=== PATIENT | male | born 1965 | race African-American/Black ===

== ENCOUNTER 2017-11-01 18:52 | Inpatient (IN) | payer OTHER ==
[2017-11-01 20:14] VITALS: BMI 31.7
--- NOTE | 2017-11-01 20:31 | HP ---
Admission ROS [facility] Chief Complaint: Seeking Rehab. for cocaine dependence Allergies/Adverse Reactions: Allergies Allergy/AdvReac Type Severity Reaction Status Date / Time No Known Allergies Allergy Verified 11/01/17 20:03 History of Present Illness: 52 years old male with a long history of cocaine dependence is admitted to rehab. Patient reports medical history of HTN, DM type 2 and Depression. Denies suicidal ideation. This is his first admission to [facility] and he had previous admission to rehab. about seven years ago. Exam Limitations: No Limitations - Ebola screening Have you traveled outside of the country in the last 21 days: No Have you had contact with anyone from an Ebola affected area: No Have you been sick,other than usual withdrawal symptoms: No Do you have a fever: No - Review of Systems Constitutional: No Symptoms Reported EENT: reports: No Symptoms Reported Respiratory: reports: No Symptoms reported Cardiac: reports: No Symptoms Reported GI: reports: No Symptoms Reported : reports: No Symptoms Reported Musculoskeletal: reports: No Symptoms Reported Integumentary: reports: No Symptoms Reported Neuro: reports: No Symptoms reported Endocrine: reports: No Symptoms Reported Hematology: reports: No Symptoms Reported Psychiatric: reports: Mood/Affect Appropiate, Orientated x3 Other Systems: Reviewed and Negative Patient History - Patient Medical History Hx Anemia: No Hx Asthma: No Hx Chronic Obstructive Pulmonary Disease (COPD): No Hx Cancer: No Hx Cardiac Disorders: No Hx Congestive Heart Failure: No Hx Hypertension: Yes Hx Hypercholesterolemia: No Hx Pacemaker: No HX Cerebrovascular Accident: No Hx Seizures: No Hx Dementia: No Hx Diabetes: Yes (recently diagnosed, on Metformin) Hx Gastrointestinal Disorders: No Hx Liver Disease: No Hx Genitourinary Disorders: No Hx Sexually Transmitted Disorders: No Hx Renal Disease (ESRD): No Hx Thyroid Disease: No Hx Human Immunodeficiency Virus (HIV): No (Negative 2017) Hx Hepatitis C: No Hx Depression: Yes Hx Suicide Attempt: No Hx Bipolar Disorder: No Hx Schizophrenia: Yes - Patient Surgical History Past Surgical History: No - PPD History Previous Implant?: Yes ([facility], [place], PPD+, INH 9 months) Documented Results: Positive w/o proof - Reproductive History Patient is a Female of Child Bearing Age (11 -55 yrs old): No (Male) - Smoking Cessation Smoking history: Current every day smoker Have you smoked in the past 12 months: Yes Aproximately how many cigarettes per day: 8 Hx Chewing Tobacco Use: No Initiated information on smoking cessation: Yes 'Breaking Loose' booklet given: 11/01/17 - Substance & Tx. History Hx Alcohol Use: No Hx Substance Use: Yes Substance Use Type: Cocaine Hx Substance Use Treatment: Yes ([facility] [place]) - Substances Abused Cocaine Route: Smoking Frequency: Daily Amount used: $100 daily Age of first use: 29 Date of Last Use: 10/30/17 Family Disease History - Family Disease History Family History: Denies Admission Physical Exam [facility] - Vital Signs Vital Signs: Vital Signs - 24 hr 11/01/17 20:08 Temperature 97.8 F Pulse Rate 70 Respiratory 18 Rate Blood Pressure 144/80 - Physical General Appearance: Yes: Within Normal Limits, Appropriately Dressed HEENTM: Yes: EOMI, Normal Voice, Other (missing upper and lower teeth) Respiratory: Yes: Lungs Clear, Normal Breath Sounds, No Respiratory Distress Neck: Yes: Supple Breast: Yes: Breast Exam Deferred Abdominal: Yes: Within Normal Limits, Soft Genitourinary: Yes: Within Normal Limits Back: Yes: Normal Inspection Extremities: Yes: Within Normal Limits, Normal Capillary Refill Neurological: Yes: Fully Oriented, Alert, Normal Mood/Affect, Normal Response Integumentary: Yes: Within Normal Limits, Warm Lymphatic: Yes: Within Normal Limits - Diagnostic (1) Cocaine dependence, uncomplicated Current Visit: Yes Status: Chronic (2) Nicotine dependence Current Visit: Yes Status: Chronic (3) HTN (hypertension) Current Visit: Yes Status: Chronic (4) Diabetes Current Visit: Yes Status: Chronic (5) Depression Current Visit: Yes Status: Chronic Cleared for Admission [facility] - Detox or Rehab [facility] Level of Care: Observation Bed Claeared for Rehab Admission: Yes [facility] Breath Alcohol Content Breath Alcohol Content: 0 Urine Drug Screen - Results Drug Screen Negative: No Urine Drug Screen Results: [facility]-Cocaine Inpatient Rehab Admission - Initial Determination Are CD services needed?: Yes Free of communicable disease: Yes Not in need of hospitalization: Yes - Rehab Admission Criteria Previous failed treatment: Yes Poor recovery environment: Yes Comorbidities: Yes Lacks judgement: No Patient is meeting Inpatient Rehab admission criteria:: Yes
[2017-11-01] MEDS ORDERED: P-EPHED 60MG/TRIPROLIDI 2.5MG TABLET PO PRN (20:44)
[2017-11-01] MEDS ORDERED: MAG HYDROX/AL HYDROX/SIMETH 30 ML UNIT-DOSE CUP PO PRN (20:44)
[2017-11-01] MEDS ORDERED: LOPERAMIDE HCL 2 MG CAPSULE PO PRN (20:44)
[2017-11-01] MEDS ORDERED: guaiFENesin/D-METHORPHAN HB 10 ML UNIT-DOSE CUPS PO PRN (20:44)
[2017-11-01] MEDS ORDERED: MAGNESIUM CITRATE 300 ML BOTTLE PO PRN (20:44)
[2017-11-01] MEDS ORDERED: ACETAMINOPHEN 325 MG TABLET (FP) PO PRN (20:44)
[2017-11-01] MEDS ORDERED: MAGNESIUM HYDROX 2400MG/30ML ORAL SUSPENSION 30 ML CUP PO PRN (20:44)
[2017-11-01] MEDS ORDERED: MENTHOL/PHENOL 1 EACH UD MM PRN (20:44)
[2017-11-01] MEDS ORDERED: NICOTINE POLACRILEX 2 MG GUM BC PRN (20:44)
[2017-11-01] MEDS ORDERED: IBUPROFEN 400 MG TABLET (FP) PO PRN (20:44)
[2017-11-01] MEDS: THIAMINE HCL 100 MG TABLET (FP) PO SCH (23:19)
[2017-11-01] MEDS: DIVALPROEX SODIUM 500 MG TABLET E.C. PO SCH (23:19)
[2017-11-01] MEDS: risperiDONE 2 MG TABLET PO SCH (23:19)
[2017-11-01] MEDS: MIRTAZAPINE 15 MG TABLET (FP) PO SCH (23:19)
[2017-11-02 01:26] LABS: URINE APPEARANCE CLEAR; URINE BILIRUBIN NEGATIVE (NEGATIVE); URINE BLOOD 1+ (NEGATIVE); URINE COLOR YELLOW; URINE GLUCOSE (UA) NEGATIVE (NEGATIVE); URINE KETONE NEGATIVE (NEGATIVE); URINE LEUK ESTERASE NEGATIVE (NEGATIVE); URINE NITRITE NEGATIVE (NEGATIVE); URINE PROTEIN NEGATIVE (NEGATIVE); URINE UROBILINOGEN NEGATIVE mg/dL (0.2-1.0)
[2017-11-02 01:54] LABS: EPI CELLS RARE /HPF (FEW); URINE MUCUS RARE
[2017-11-02] MEDS: metFORMIN HCL 500 MG TABLET (FP) PO SCH ×2 (06:38→16:55)
[2017-11-02 10:03] LABS: HEMATOCRIT 42.2 % (35.4-49); HEMOGLOBIN 13.6 GM/dL (11.7-16.9); MCH 28.5 pg (25.7-33.7); MCHC 32.2 g/dl (32.0-35.9); MEAN CELL VOLUME 88.6 fl (80-96); MEAN PLT VOLUME 8.3 fl (7.5-11.1); PLATELET COUNT 273 K/MM3 (134-434); RBC 4.76 M/mm3 (4.00-5.60); RDW 14.9 % (11.9-15.9); WHITE BLOOD COUNT 6.9 K/mm3 (4.0-10.0)
--- NOTE | 2017-11-02 10:10 | EKG ---
Test Reason : Blood Pressure : / mmHG Vent. Rate : 061 BPM Atrial Rate : 061 BPM P-R Int : 144 ms QRS Dur : 092 ms QT Int : 396 ms P-R-T Axes : 036 040 -03 degrees QTc Int : 398 ms NORMAL SINUS RHYTHM NONSPECIFIC T WAVE ABNORMALITY ABNORMAL ECG NO PREVIOUS ECGS AVAILABLE Confirmed by LANDRY PARRISH MD ([id number]) on 11/02/2017 10:09:43 AM Referred By: Confirmed By:LANDRY PARRISH MD
[2017-11-02 10:15] LABS: ALBUMIN 3.1 g/dl (3.4-5.0); ALK PHOS 70 U/L (45-117); ANION GAP 9 (8-16); BILIRUBIN,TOTAL 0.2 mg/dL (0.2-1.0); BLOOD UREA NITROGEN 10 mg/dL (7-18); CALCIUM 8.5 mg/dL (8.5-10.1); CHLORIDE 109 mmol/L (98-107); CO2 25 mmol/L (21-32); CREATININE 1.2 mg/dL (0.7-1.3); GLUCOSE,RANDOM 114 mg/dL (74-106); POTASSIUM 3.5 mmol/L (3.5-5.1); SGOT/AST 10 U/L (15-37); SGPT/ALT 18 U/L (12-78); SODIUM 143 mmol/L (136-145); TOT PROT 6.1 g/dl (6.4-8.2)
[2017-11-02 10:24] LABS: SICKLE CELL SCREEN NEGATIVE (NEGATIVE)
[2017-11-02] MEDS: PRENATAL VITAMINS W/ FOLIC ACID TABLET (FP) PO SCH (10:43)
[2017-11-02] MEDS: NICOTINE 14 MG/24 HOURS TOPICAL PATCH TD SCH (10:44)
--- NOTE | 2017-11-02 12:57 | HP ---
Psychiatrist Admission - Data Date of interview: 11/02/17 Admission source: [facility] Identifying data: This is the first 5n inpatient rehabilitation admission for thsi 52 year old single AA male father of 2, crescencio[loyed and on SSI, he is domililed residing in [place]. Medical History: HTN, positive PPD and has completed 9 months of INH treatment DM type II, yet to take any medication for DM, right thumb disfigured from a fracture that was not repaired many years ago. Smokes cigarettes 8 a day. Psychiatric History: Patient is poor historian, he is irritable "I am tired", admits was diagnosed as Schizoaffective disorder, several psychiatric hospitalizations, sees the psychiatrist in one of the [facility] Mental OPD, currently on Depakote 1000 mg po hs, Rispardal 2 mg po hs and Remeron 15 mg po hs. Physical/Sexual Abuse/Trauma History: Denies Vital Signs: Vital Signs - 24 hr 11/01/17 11/01/17 11/02/17 20:08 22:27 00:41 Temperature 97.8 F 98.2 F Pulse Rate 70 70 Respiratory 18 18 18 Rate Blood Pressure 144/80 132/77 11/02/17 11/02/17 03:30 07:01 Temperature 97.8 F Pulse Rate 66 Respiratory 18 20 Rate Blood Pressure 135/75 Allergies/Adverse Reactions: Allergies Allergy/AdvReac Type Severity Reaction Status Date / Time No Known Allergies Allergy Verified 11/01/17 20:03 Concur with the findings of this exam: Yes - Substance Abuse/Tx History Hx Alcohol Use: No Hx Substance Use: Yes Substance Use Type: Cocaine (daily use) Hx Substance Use Treatment: Yes ([facility] ) Mental Status Exam - Mental Status Exam Alert and Oriented to: Place, Person Cognitive Function: Grossly Intact Patient Appearance: Well Groomed Mood: Angry, Hostile, Irritable Affect: Mood Congruent Patient Behavior: Guarded Speech Pattern: Appropriate Voice Loudness: Normal Thought Process: Goal Oriented Thought Disorder: Not Present Hallucinations: Denies Suicidal Ideation: Denies Homicidal Ideation: Denies Insight/Judgement: Fair Sleep: Fair Appetite: Fair Muscle strength/Tone: Normal Gait/Station: Normal Psychiatric Findings - Problem List ([place] 1, 2,3) (1) Schizoaffective disorder Current Visit: Yes Status: Acute (2) Cocaine dependence Current Visit: Yes Status: Acute (3) Nicotine dependence Current Visit: Yes Status: Chronic - Initial Treatment Plan Initial Treatment Plan: will continue his current medications, monitor progress as needed.
[2017-11-02] MEDS: risperiDONE 2 MG TABLET PO SCH (21:46)
[2017-11-02] MEDS: DIVALPROEX SODIUM 500 MG TABLET E.C. PO SCH (21:46)
[2017-11-02] MEDS: MIRTAZAPINE 15 MG TABLET (FP) PO SCH (21:46)
[2017-11-02] MEDS: THIAMINE HCL 100 MG TABLET (FP) PO SCH (21:47)
[2017-11-03] MEDS: metFORMIN HCL 500 MG TABLET (FP) PO SCH ×2 (07:45→16:50)
[2017-11-03] MEDS: PRENATAL VITAMINS W/ FOLIC ACID TABLET (FP) PO SCH (10:51)
[2017-11-03] MEDS: NICOTINE 14 MG/24 HOURS TOPICAL PATCH TD SCH (10:51)
[2017-11-03] MEDS: DIVALPROEX SODIUM 500 MG TABLET E.C. PO SCH (22:11)
[2017-11-03] MEDS: THIAMINE HCL 100 MG TABLET (FP) PO SCH (22:11)
[2017-11-03] MEDS: MIRTAZAPINE 15 MG TABLET (FP) PO SCH (22:12)
[2017-11-03] MEDS: risperiDONE 2 MG TABLET PO SCH (22:12)
[2017-11-04] MEDS: metFORMIN HCL 500 MG TABLET (FP) PO SCH ×2 (07:15→16:45)
[2017-11-04] MEDS: PRENATAL VITAMINS W/ FOLIC ACID TABLET (FP) PO SCH (10:44)
[2017-11-04] MEDS: NICOTINE 14 MG/24 HOURS TOPICAL PATCH TD SCH (10:44)
[2017-11-04] MEDS: MIRTAZAPINE 15 MG TABLET (FP) PO SCH (21:45)
[2017-11-04] MEDS: risperiDONE 2 MG TABLET PO SCH (21:45)
[2017-11-04] MEDS: DIVALPROEX SODIUM 500 MG TABLET E.C. PO SCH (21:45)
[2017-11-04] MEDS: THIAMINE HCL 100 MG TABLET (FP) PO SCH (21:46)
[2017-11-05] MEDS: metFORMIN HCL 500 MG TABLET (FP) PO SCH ×2 (07:37→16:41)
[2017-11-05] MEDS ORDERED: VITAMIN D PO SCH (10:00)
[2017-11-05] MEDS: PRENATAL VITAMINS W/ FOLIC ACID TABLET (FP) PO SCH (11:34)
[2017-11-05] MEDS: NICOTINE 14 MG/24 HOURS TOPICAL PATCH TD SCH (11:34)
[2017-11-05] MEDS: MIRTAZAPINE 15 MG TABLET (FP) PO SCH (21:38)
[2017-11-05] MEDS: DIVALPROEX SODIUM 500 MG TABLET E.C. PO SCH (21:38)
[2017-11-05] MEDS: risperiDONE 2 MG TABLET PO SCH (21:38)
[2017-11-05] MEDS: THIAMINE HCL 100 MG TABLET (FP) PO SCH (21:39)
[2017-11-06] MEDS: metFORMIN HCL 500 MG TABLET (FP) PO SCH ×2 (07:08→16:55)
[2017-11-06] MEDS: NICOTINE 14 MG/24 HOURS TOPICAL PATCH TD SCH (10:28)
[2017-11-06] MEDS: PRENATAL VITAMINS W/ FOLIC ACID TABLET (FP) PO SCH (10:28)
[2017-11-06] MEDS: THIAMINE HCL 100 MG TABLET (FP) PO SCH (21:41)
[2017-11-06] MEDS: MIRTAZAPINE 15 MG TABLET (FP) PO SCH (21:41)
[2017-11-06] MEDS: DIVALPROEX SODIUM 500 MG TABLET E.C. PO SCH (21:41)
[2017-11-06] MEDS: risperiDONE 2 MG TABLET PO SCH (21:41)
[2017-11-07] MEDS: metFORMIN HCL 500 MG TABLET (FP) PO SCH ×2 (07:11→17:34)
[2017-11-07] MEDS: ERGOCALCIFEROL (VITAMIN D2) 50,000 UNIT CAPSULE (FP) PO SCH (10:55)
[2017-11-07] MEDS: NICOTINE 14 MG/24 HOURS TOPICAL PATCH TD SCH (10:56)
[2017-11-07] MEDS: PRENATAL VITAMINS W/ FOLIC ACID TABLET (FP) PO SCH (10:56)
[2017-11-07] MEDS: risperiDONE 2 MG TABLET PO SCH (21:50)
[2017-11-07] MEDS: MIRTAZAPINE 15 MG TABLET (FP) PO SCH (21:50)
[2017-11-07] MEDS: DIVALPROEX SODIUM 500 MG TABLET E.C. PO SCH (21:50)
[2017-11-07] MEDS: THIAMINE HCL 100 MG TABLET (FP) PO SCH (21:51)
[2017-11-08] MEDS: metFORMIN HCL 500 MG TABLET (FP) PO SCH ×2 (07:25→16:42)
[2017-11-08] MEDS: PRENATAL VITAMINS W/ FOLIC ACID TABLET (FP) PO SCH (10:26)
[2017-11-08] MEDS: NICOTINE 14 MG/24 HOURS TOPICAL PATCH TD SCH (10:26)
[2017-11-08] MEDS: DIVALPROEX SODIUM 500 MG TABLET E.C. PO SCH (21:58)
[2017-11-08] MEDS: risperiDONE 2 MG TABLET PO SCH (21:58)
[2017-11-08] MEDS: MIRTAZAPINE 15 MG TABLET (FP) PO SCH (21:58)
[2017-11-08] MEDS: THIAMINE HCL 100 MG TABLET (FP) PO SCH (21:59)
[2017-11-09] MEDS: metFORMIN HCL 500 MG TABLET (FP) PO SCH ×2 (06:41→16:56)
[2017-11-09] MEDS: PRENATAL VITAMINS W/ FOLIC ACID TABLET (FP) PO SCH (11:05)
[2017-11-09] MEDS: NICOTINE 14 MG/24 HOURS TOPICAL PATCH TD SCH (11:05)
[2017-11-09] MEDS: risperiDONE 2 MG TABLET PO SCH (21:40)
[2017-11-09] MEDS: DIVALPROEX SODIUM 500 MG TABLET E.C. PO SCH (21:40)
[2017-11-09] MEDS: MIRTAZAPINE 15 MG TABLET (FP) PO SCH (21:40)
[2017-11-09] MEDS: THIAMINE HCL 100 MG TABLET (FP) PO SCH (21:41)
[2017-11-10] MEDS: metFORMIN HCL 500 MG TABLET (FP) PO SCH ×2 (06:35→16:45)
[2017-11-10] MEDS: NICOTINE 14 MG/24 HOURS TOPICAL PATCH TD SCH (11:19)
[2017-11-10] MEDS: PRENATAL VITAMINS W/ FOLIC ACID TABLET (FP) PO SCH (11:19)
[2017-11-10] MEDS: MIRTAZAPINE 15 MG TABLET (FP) PO SCH (21:41)
[2017-11-10] MEDS: risperiDONE 2 MG TABLET PO SCH (21:41)
[2017-11-10] MEDS: DIVALPROEX SODIUM 500 MG TABLET E.C. PO SCH (21:41)
[2017-11-10] MEDS: THIAMINE HCL 100 MG TABLET (FP) PO SCH (21:42)
[2017-11-11] MEDS: metFORMIN HCL 500 MG TABLET (FP) PO SCH ×2 (07:01→16:54)
[2017-11-11] MEDS: NICOTINE 14 MG/24 HOURS TOPICAL PATCH TD SCH (10:27)
[2017-11-11] MEDS: PRENATAL VITAMINS W/ FOLIC ACID TABLET (FP) PO SCH (10:27)
--- NOTE | 2017-11-11 10:51 | PN ---
S Progress Note Note: as per patient request will not add BGMs, HGBa1c currently 5.6%. as per patient request added Hepatitic C testing to be drawn tomorrow morning.
[2017-11-11] MEDS: DIVALPROEX SODIUM 500 MG TABLET E.C. PO SCH (21:35)
[2017-11-11] MEDS: MIRTAZAPINE 15 MG TABLET (FP) PO SCH (21:35)
[2017-11-11] MEDS: risperiDONE 2 MG TABLET PO SCH (21:35)
[2017-11-11] MEDS: THIAMINE HCL 100 MG TABLET (FP) PO SCH (21:36)
[2017-11-12] MEDS: metFORMIN HCL 500 MG TABLET (FP) PO SCH ×2 (07:06→16:43)
[2017-11-12] MEDS ORDERED: ERGOCALCIFEROL (VITAMIN D2) 50,000 UNIT CAPSULE (FP) PO SCH (10:00)
[2017-11-12] MEDS: PRENATAL VITAMINS W/ FOLIC ACID TABLET (FP) PO SCH (10:34)
[2017-11-12] MEDS: NICOTINE 14 MG/24 HOURS TOPICAL PATCH TD SCH (10:34)
[2017-11-12] MEDS: DIVALPROEX SODIUM 500 MG TABLET E.C. PO SCH (21:39)
[2017-11-12] MEDS: risperiDONE 2 MG TABLET PO SCH (21:39)
[2017-11-12] MEDS: THIAMINE HCL 100 MG TABLET (FP) PO SCH (21:40)
[2017-11-12] MEDS: MIRTAZAPINE 15 MG TABLET (FP) PO SCH (21:40)
[2017-11-13] MEDS: metFORMIN HCL 500 MG TABLET (FP) PO SCH ×2 (06:26→16:47)
[2017-11-13] MEDS: NICOTINE 14 MG/24 HOURS TOPICAL PATCH TD SCH (09:59)
[2017-11-13] MEDS: PRENATAL VITAMINS W/ FOLIC ACID TABLET (FP) PO SCH (09:59)
[2017-11-13] MEDS: MIRTAZAPINE 15 MG TABLET (FP) PO SCH (21:51)
[2017-11-13] MEDS: risperiDONE 2 MG TABLET PO SCH (21:51)
[2017-11-13] MEDS: DIVALPROEX SODIUM 500 MG TABLET E.C. PO SCH (21:51)
[2017-11-13] MEDS: THIAMINE HCL 100 MG TABLET (FP) PO SCH (21:51)
[2017-11-14] MEDS: metFORMIN HCL 500 MG TABLET (FP) PO SCH ×2 (06:57→16:43)
[2017-11-14] MEDS: ERGOCALCIFEROL (VITAMIN D2) 50,000 UNIT CAPSULE (FP) PO SCH (10:12)
[2017-11-14] MEDS: PRENATAL VITAMINS W/ FOLIC ACID TABLET (FP) PO SCH (10:13)
[2017-11-14] MEDS: NICOTINE 14 MG/24 HOURS TOPICAL PATCH TD SCH (10:13)
[2017-11-14] MEDS: MIRTAZAPINE 15 MG TABLET (FP) PO SCH (21:40)
[2017-11-14] MEDS: THIAMINE HCL 100 MG TABLET (FP) PO SCH (21:40)
[2017-11-14] MEDS: risperiDONE 2 MG TABLET PO SCH (21:40)
[2017-11-14] MEDS: DIVALPROEX SODIUM 500 MG TABLET E.C. PO SCH (21:40)
[2017-11-15] MEDS: metFORMIN HCL 500 MG TABLET (FP) PO SCH (06:34)
[2017-11-15 06:54] VITALS: BP 118/72; PULSE 71; TEMP 97.2
--- NOTE | 2017-11-15 09:31 | PN ---
Psychiatric Progress Note Vital Signs: Vital Signs Period Temp Pulse Resp BP Sys/Bernal Pulse Ox Last 24 Hr 97.2 F 71 18-20 118/72 Date of Session: 11/15/17 Chief Complaint:: discharge visit HPI: Patient has addressed cocaine, nicotine dependence comorbid Schizoaffective disorder. ROS: HTN, DM type II medically managed. Current Medications: Active Medications Generic Name Dose Route Start Last Admin Trade Name Freq PRN Reason Stop Dose Admin Acetaminophen 650 mg 11/01/17 20:44 Tylenol - PO Q4H PRN PAIN Al Hydroxide/Mg Hydroxide 30 ml 11/01/17 20:44 Mylanta Oral Suspension - PO Q6H PRN DYSPEPSIA Divalproex Sodium 1,000 mg 11/01/17 23:15 11/14/17 21:40 Depakote - PO 1,000 mg HS CATALINO Administration Ergocalciferol 50,000 unit 11/07/17 10:00 11/14/17 10:12 Drisdol - PO Not Given MO@1000 [facility] Eucalyptus/Menthol/Phenol/Sorbitol 1 each 11/01/17 20:44 Cepastat Lozenge - MM Q4H PRN SORE THROAT Guaifenesin 10 ml 11/01/17 20:44 Robitussin Dm - PO Q6H PRN COUGH Ibuprofen 400 mg 11/01/17 20:44 Motrin - PO Q6H PRN SEVERE PAIN Loperamide HCl 4 mg 11/01/17 20:44 Imodium - PO Q6H PRN DIARRHEA Magnesium Citrate 300 ml 11/01/17 20:44 Citroma - PO Q48H PRN CONSTIPATION Magnesium Hydroxide 30 ml 11/01/17 20:44 Milk Of Magnesia - PO DAILY PRN CONSTIPATION Metformin HCl 500 mg 11/02/17 07:00 11/15/17 06:34 Glucophage - PO Not Given BIDAC CATALINO Mirtazapine 15 mg 11/01/17 23:15 11/14/17 21:40 Remeron - PO 15 mg HS CATALINO Administration Nicotine 14 mg 11/02/17 10:00 11/14/17 10:13 Nicoderm Patch - TD Not Given DAILY CATALINO Nicotine Polacrilex 2 mg 11/01/17 20:44 Nicorette Gum - BC Q2H PRN NICOTINE REPLACEMENT RX Multivit/Folic Acid/Iron 1 tab 11/02/17 10:00 11/14/17 10:13 Vitamins (Sjr) - PO Not Given DAILY CATALINO Pseudoephedrine/Triprolidine 1 combo 11/01/17 20:44 Actifed - PO TID PRN NASAL CONGESTION Risperidone 2 mg 11/01/17 23:15 11/14/17 21:40 Risperdal - PO 2 mg HS CATALINO Administration Thiamine HCl 100 mg 11/01/17 22:00 11/14/17 21:40 Vitamin B1 - PO Not Given HS CATALINO Current Side Effect: No Lab tests ordered: No Lab tests reviewed: Yes Provider note:: Patient has completed today his treatment and met his identified goals, will continue to address his issues at [facility] opd, he gained insights into his addiction and understands the negative consequences of his behavior over his major life areas including mental and physical health. Patient is motivated to continue maintain abstience, he was encouraged to utilize all supports available to prevent relapses. Medications Depakote, Risperdal and Remeron well tolerated, scripts for 30 days provided. Patient is stable for discharge today. Will f/u with a psychiatrist at [facility] opd. Total face to face time:: 25 Mental Status Exam - Mental Status Exam Alert and Oriented to: Time, Place, Person Cognitive Function: Good Patient Appearance: Well Groomed Mood: Hopeful Affect: Appropriate, Mood Congruent Patient Behavior: Appropriate, Cooperative Speech Pattern: Clear, Appropriate Voice Loudness: Normal Thought Process: Intact, Goal Oriented Thought Disorder: Not Present Hallucinations: Denies Suicidal Ideation: Denies Homicidal Ideation: Denies Insight/Judgement: Fair Sleep: Fair Appetite: Fair Muscle strength/Tone: Normal Gait/Station: Normal Psychiatric Treatment Plan - Problem List (1) Schizoaffective disorder Current Visit: Yes (2) Cocaine dependence Current Visit: Yes (3) Nicotine dependence Current Visit: Yes
[2017-11-15] MEDS: NICOTINE 14 MG/24 HOURS TOPICAL PATCH TD SCH (09:42)
[2017-11-15] MEDS: PRENATAL VITAMINS W/ FOLIC ACID TABLET (FP) PO SCH (09:42)
== END 2017-11-15 10:45 | disposition home or self-care (01) | DRG 772 ==
LOC: YASAS 18:52 → Y5N 21:28
PROVIDERS: ADMIT Psychiatry & Neurology Psychiatry; ATTEND Psychiatry & Neurology Psychiatry
PROC: HZ42ZZZ Group Counseling for Substance Abuse Treatment, Cognitive-Behavioral (ICD-10-PCS; principal; 2017-10-30)
DX: F14.20 Cocaine dependence, uncomplicated (principal); F17.210 Nicotine dependence, cigarettes, uncomplicated; F25.9 Schizoaffective disorder, unspecified; F32.9 Major depressive disorder, single episode, unspecified; I10 Essential (primary) hypertension; E11.9 Type 2 diabetes mellitus without complications; Z79.84 Long term (current) use of oral hypoglycemic drugs
CPT/HCPCS: 36415; 71020-TC; 80053; 81003; 81015; 83036; 85027; 85660; 86593; 86803; 87389; 93005; 93010